=== PATIENT | female | born 1940 | race Caucasian/White ===

== ENCOUNTER → 2017-06-29 | Outpatient (CLI) | payer OTHER, BC ==
[2013-12-07 09:32] VITALS: BP 170/83
--- NOTE | 2017-06-29 11:59 | RAD ---
History: Right foot pain and swelling Study: Right foot three views Findings: Three views of the right foot demonstrates a mild hallux valgus. Alignment and joint spacin g is otherwise unremarkable. No fracture, bony destructive process or soft tissue abnormality is iden tified. There is mild soft tissue swelling over the dorsum of the foot. Impression: Mild hallux valgus. Soft tissue swelling with no acute osseous abnormality. Reported By:
== END | disposition home or self-care (01) ==
LOC: RAD 11:22
PROVIDERS: ATTEND Internal Medicine
DX: M79.671 Pain in right foot (principal); R60.0 Localized edema; M20.11 Hallux valgus (acquired), right foot
CPT/HCPCS: 73630

== ENCOUNTER 2020-07-21 14:34 | Observation (INO) ==
[2020-07-21] MEDS ORDERED: NITROSTAT SL PRN (14:56)
[2020-07-21] MEDS ORDERED: ASPIRIN 81 MG CHEWTAB ONE (14:57)
[2020-07-21] MEDS ORDERED: NITROSTAT ONE ×2 (14:57→15:10)
[2020-07-21] MEDS ORDERED: ASPIRIN PO SCH (15:00)
[2020-07-21] MEDS ORDERED: ASPIRIN 81 MG CHEWTAB PO ONE (15:02)
--- NOTE | 2020-07-21 15:05 | DR.CP ---
HPI Time Seen Time Seen by Provider: 07/21/20 14:53 PCP Primary Care Physician: KATTY Complaint Chief Complaint:: PT COMPLAINTS OF CHEST PAIN AND UPPER ABDOMEN PAIN. PT COMPLAINTS OF ABDOMEN PAIN FROM HITAL HERNIA BUT IT PAIN IS IN LEFT CHEST PAIN. PT IS NAUSEATED AND WEAK WHILE AMBULATING. DAUGHTER AT BEDSIDE. Source History Provided: Patient Mode of Arrival Mode of Arrival: Ambulatory Timing Onset of Chief Complaint: 07/21/20 Location Chest Pain Radiation Location: Left Shoulder Associated Signs and Symptoms Associated Signs and Symptoms: Abdominal Pain, Nausea/Vomiting and Other PMH PMH Past Medical History: Yes Past Medical History: Arthritis and Hypertension Past Medical History Comment: HITAL HERNIA6 Past Surgical History: Yes Surgical History: Hysterectomy and Other Past Surgical History Comment: BREAST CA Family History History of Family Medical Conditions: Yes Family Medical History: Cancer and Hypertension Social History Does patient currently use any type of tobacco product: No Have you used tobacco products in the last 12 months: No Type of Tobacco Use: None Do you use any recreational Drugs:: No Infectious screening In the last 2 months have you had wt loss of >10#?: NO Have you had fever, night sweats or hemotysis?: No Have you traveled outside the country in the last 6 months?: No Isolation: Standard PE Vitals Vitals: Temperature 98.2 F Pulse Rate 97 Respiratory Rate 32 Blood Pressure [Right Arm] 170/80 Blood Pressure 168/78 O2 Sat by Pulse Oximetry 98 COURSE Consultation Called: 15:42 Call Returned: 16:03 Consultation Comments: case discussed with Dr. Pradhan, recommend rule out over night. 1600: discussed with DR. Inman admit to rule out [place]. [facility] Labs Reviewed Result Diagrams: 07/21/20 14:56 07/21/20 14:56 Laboratory: WBC 7.1 X10^3/uL (3.6-10.0) 07/21/20 14:56 RBC 4.44 X10^6/uL (3.5-5.4) 07/21/20 14:56 Hgb 13.4 g/dL (12.0-16.0) 07/21/20 14:56 Hct 39.8 % (36.0-47.0) 07/21/20 14:56 MCV 89.6 fL (80.0-100.0) 07/21/20 14:56 MCH 30.2 pg (27.0-34.0) 07/21/20 14:56 MCHC 33.7 g/dL (33.0-35.0) 07/21/20 14:56 RDW 13.0 % (11.6-16.5) 07/21/20 14:56 Plt Count 427 X10^3/uL (150.0-450.0) 07/21/20 14:56 MPV 7.0 fL (7.4-11.0) L 07/21/20 14:56 Neut % (Auto) 66.9 % (42.0-75.0) 07/21/20 14:56 Lymph % (Auto) 22.6 % (21.0-51.0) 07/21/20 14:56 [place] % (Auto) 7.4 % (0.0-13.0) 07/21/20 14:56 Eos % (Auto) 2.4 % (0.9-2.9) 07/21/20 14:56 Baso % (Auto) 0.7 % (0.2-1.0) 07/21/20 14:56 Neut # (Auto) 4.8 x10^3/uL (2.2-4.8) 07/21/20 14:56 Lymph # (Auto) 1.6 X10^3/uL (1.3-2.9) 07/21/20 14:56 [place] # (Auto) 0.5 x10^3/uL (0.3-0.8) 07/21/20 14:56 Eos # (Auto) 0.2 x10^3/uL (0.0-0.2) 07/21/20 14:56 Baso # (Auto) 0.1 X10^3/uL (0.0-0.1) 07/21/20 14:56 Absolute Nucleated RBC 0.0 /100WBC 07/21/20 14:56 PT 12.1 SECONDS (11.8-14.3) 07/21/20 14:56 INR Target Range - 07/21/20 14:56 INR 0.92 (0.8-1.3) 07/21/20 14:56 Sodium 135 mmol/L (136-145) L 07/21/20 14:56 Corrected Sodium 136 mmol/L (136-145) 07/21/20 14:56 Potassium 3.8 mmol/L (3.5-5.1) 07/21/20 14:56 Chloride 98 mmol/L (98-107) 07/21/20 14:56 Carbon Dioxide 26.3 mmol/L (21-32) 07/21/20 14:56 BUN 22 mg/dL (7-18) H 07/21/20 14:56 Creatinine 1.35 mg/dL (0.55-1.02) H 07/21/20 14:56 Est GFR (MDRD) Af Amer 49 (>60) L 07/21/20 14:56 Est GFR (MDRD) Non-Af 40 (>60) L 07/21/20 14:56 Glucose 124 mg/dL (65-99) H 07/21/20 14:56 Calcium 9.4 mg/dL (8.5-10.1) 07/21/20 14:56 Corrected Calcium TNP 07/21/20 14:56 Magnesium 2.0 mg/dL (1.7-2.9) 07/21/20 14:56 Total Bilirubin 0.30 mg/dL (0.2-1.0) 07/21/20 14:56 AST 16 Units/L (15-37) 07/21/20 14:56 ALT 18 Units/L (12-78) 07/21/20 14:56 Alkaline Phosphatase 52 Units/L (46-116) 07/21/20 14:56 Creatine Kinase 72 Units/L (26-192) 07/21/20 14:56 CK-MB (CK-2) 1.6 ng/mL (0-4.0) 07/21/20 14:56 CK/CKMB % Calc 2.2 % (<4) 07/21/20 14:56 Troponin I < 0.02 ng/mL (0-1.5) 07/21/20 14:56 Total Protein 7.7 g/dL (6.4-8.2) 07/21/20 14:56 Albumin 4.1 g/dL (3.4-5.0) 07/21/20 14:56 Globulin 3.6 g/dL (2.5-4.5) 07/21/20 14:56 Albumin/Globulin Ratio 1.1 Ratio (1.1-2.1) 07/21/20 14:56 Triglycerides 98 mg/dL (0-150) 07/21/20 14:56 Cholesterol 204 mg/dL (0-200) H 07/21/20 14:56 LDL Cholesterol, Calc 111 mg/dL (0-100) H 07/21/20 14:56 HDL Cholesterol 73 mg/dL (40-60) H 07/21/20 14:56 Cholesterol/HDL Ratio 2.8 (0.0-5.0) 07/21/20 14:56 EKG Rate: 103 [place]: Normal Rhythm: ST Block: RBBB Hypertrophy: LVH ST: Ant Opioid Opioid Risk Tool Total: 0 Total Score Risk Category: Low Risk Copyright: Anthony LOMELI predicting aberrant behaviors Diagnosis Discharge Problem: Chest pain, rule out acute myocardial infarction
[2020-07-21] MEDS ORDERED: NS 1000 ML 1,000 ML ONE (15:11)
[2020-07-21 15:12] LABS: BASOPHILS # (AUTO) 0.1 X10^3/uL (0.0-0.1); BASOPHILS % (AUTO) 0.7 % (0.2-1.0); EOSINOPHILS # (AUTO) 0.2 x10^3/uL (0.0-0.2); EOSINOPHILS % (AUTO) 2.4 % (0.9-2.9); HEMATOCRIT 39.8 % (36.0-47.0); HEMOGLOBIN 13.4 g/dL (12.0-16.0); LYMPHOCYTES # (AUTO) 1.6 X10^3/uL (1.3-2.9); LYMPHOCYTES % (AUTO) 22.6 % (21.0-51.0); MEAN CORPUSCULAR HEMOGLOBIN 30.2 pg (27.0-34.0); MEAN CORPUSCULAR HGB CONC 33.7 g/dL (33.0-35.0); MEAN CORPUSCULAR VOLUME 89.6 fL (80.0-100.0); MONOCYTES # (AUTO) 0.5 x10^3/uL (0.3-0.8); MONOCYTES % (AUTO) 7.4 % (0.0-13.0); NEUTROPHILS # (AUTO) 4.8 x10^3/uL (2.2-4.8); NEUTROPHILS % (AUTO) 66.9 % (42.0-75.0); PLATELET COUNT 427 X10^3/uL (150.0-450.0); RED BLOOD COUNT 4.44 X10^6/uL (3.5-5.4); WHITE BLOOD COUNT 7.1 X10^3/uL (3.6-10.0)
[2020-07-21] MEDS ORDERED: MORPHINE SULFATE INJ 2 MG INJ IVP ONE ×2 (15:14→15:50)
[2020-07-21] MEDS ORDERED: ZOFRAN INJ 4 MG VIAL IVP ONE ×2 (15:15→15:57)
[2020-07-21] MEDS: NS 1000 ML 1,000 ML IV SCH (15:20)
--- NOTE | 2020-07-21 15:22 | RAD ---
HISTORYCHEST PAINSTUDYCHEST, 1 VIEWCOMPARISONNoneFINDINGSThe trachea is midline. The cardiac silhouette is mildly enlarged. There is a probable large associated hiatal hernia which could be confirmed with a lateral view.. The lungs are clear without focal infiltrate or effusion. The bony thorax is unremarkable.IMPRESSIONNo acute cardiopulmonary disease.Probable large hiatal hernia as above.Electronically signed by: AMANDA MICHELLE (Jul 21, 2020 15:20:36)
[2020-07-21 15:24] LABS: BLOOD UREA NITROGEN 22 mg/dL (7-18); CALCIUM 9.4 mg/dL (8.5-10.1); CARBON DIOXIDE 26.3 mmol/L (21-32); CHLORIDE 98 mmol/L (98-107); COR NA(FOR HYPERGLY) 136 mmol/L (136-145); CREATININE 1.35 mg/dL (0.55-1.02); SODIUM 135 mmol/L (136-145); TROPONIN I < 0.02 ng/mL (0-1.5); eGFR NON BLACK RACES 40 (>60)
[2020-07-21] MEDS ORDERED: MORPHINE SULFATE INJ 2 MG INJ ONE ×2 (15:26→15:53)
[2020-07-21] MEDS ORDERED: ZOFRAN INJ 4 MG VIAL ONE ×2 (15:26→15:58)
[2020-07-21 15:27] LABS: ALANINE AMINOTRANSFERASE 18 Units/L (12-78); ALBUMIN 4.1 g/dL (3.4-5.0); ALKALINE PHOSPHATASE 52 Units/L (46-116); ASPARTATE AMINO TRANSFERASE 16 Units/L (15-37); CHOL/HDL RATIO 2.8 (0.0-5.0); CHOLESTEROL 204 mg/dL (0-200); CKMB % 2.2 % (<4); CREATINE KINASE 72 Units/L (26-192); CREATINE KINASE MB 1.6 ng/mL (0-4.0); HDL CHOLESTEROL 73 mg/dL (40-60); TOTAL PROTEIN 7.7 g/dL (6.4-8.2); TRIGLYCERIDES 98 mg/dL (0-150)
[2020-07-21] MEDS ORDERED: LEVSIN/MAALOX/LIDOC VISC PO ONE (16:16)
[2020-07-21] MEDS ORDERED: LEVSIN/MAALOX/LIDOC VISC ONE (16:27)
[2020-07-21] MEDS ORDERED: BENTYL CAP 10 MG PO PRN (16:55)
[2020-07-21] MEDS ORDERED: OLMESARTAN MEDOXOMIL 20 MG PO SCH (16:55)
[2020-07-21] MEDS ORDERED: ZOFRAN TAB 4 MG PO PRN (16:55)
[2020-07-21] MEDS ORDERED: AFLURIA II4 or FLUARIX II4 IM ONE (17:04)
[2020-07-21] MEDS: PROTONIX INJ 40 MG VIAL IVP SCH (17:55)
[2020-07-21] MEDS ORDERED: ZOFRAN INJ 4 MG VIAL IVP PRN (18:20)
[2020-07-21 21:32] LABS: CKMB % 2.2 % (<4); CREATINE KINASE 59 Units/L (26-192); CREATINE KINASE MB 1.3 ng/mL (0-4.0); TROPONIN I < 0.02 ng/mL (0-1.5)
[2020-07-22 03:21] LABS: BASOPHILS % (AUTO) 0.8 % (0.2-1.0); EOSINOPHILS # (AUTO) 0.1 x10^3/uL (0.0-0.2); EOSINOPHILS % (AUTO) 1.7 % (0.9-2.9); HEMATOCRIT 34.8 % (36.0-47.0); HEMOGLOBIN 11.4 g/dL (12.0-16.0); LYMPHOCYTES # (AUTO) 1.6 X10^3/uL (1.3-2.9); LYMPHOCYTES % (AUTO) 24.5 % (21.0-51.0); MEAN CORPUSCULAR HGB CONC 32.8 g/dL (33.0-35.0); MEAN CORPUSCULAR VOLUME 91.3 fL (80.0-100.0); MEAN PLATELET VOLUME 7.1 fL (7.4-11.0); MONOCYTES # (AUTO) 0.5 x10^3/uL (0.3-0.8); MONOCYTES % (AUTO) 7.1 % (0.0-13.0); NEUTROPHILS # (AUTO) 4.2 x10^3/uL (2.2-4.8); NEUTROPHILS % (AUTO) 65.9 % (42.0-75.0); PLATELET COUNT 351 X10^3/uL (150.0-450.0); RED BLOOD COUNT 3.82 X10^6/uL (3.5-5.4); RED CELL DISTRIBUTION WIDTH 12.9 % (11.6-16.5); WHITE BLOOD COUNT 6.4 X10^3/uL (3.6-10.0)
[2020-07-22 03:37] LABS: ALANINE AMINOTRANSFERASE 16 Units/L (12-78); ALKALINE PHOSPHATASE 42 Units/L (46-116); ASPARTATE AMINO TRANSFERASE 13 Units/L (15-37); BLOOD UREA NITROGEN 18 mg/dL (7-18); CALCIUM 8.4 mg/dL (8.5-10.1); CARBON DIOXIDE 29.8 mmol/L (21-32); CHLORIDE 104 mmol/L (98-107); CKMB % 2.1 % (<4); COR CA(FOR HYPOALB) 9.2 mg/dL (8.5-10.1); CREATINE KINASE 47 Units/L (26-192); SODIUM 139 mmol/L (136-145); TROPONIN I < 0.02 ng/mL (0-1.5); eGFR NON BLACK RACES 38 (>60)
[2020-07-22] MEDS: NS 1000 ML 1,000 ML IV SCH ×2 (03:58→16:00)
[2020-07-22] MEDS: PROTONIX INJ 40 MG VIAL IVP SCH (08:26)
[2020-07-22] MEDS ORDERED: BENICAR TAB 40 MG PO SCH (09:00)
[2020-07-22] MEDS ORDERED: MULTIVITAMIN PO SCH (09:00)
[2020-07-22] MEDS ORDERED: TAB-A-VITE PO SCH (09:00)
[2020-07-22] MEDS ORDERED: COZAAR PO SCH (10:00)
--- NOTE | 2020-07-22 10:50 | DR.H&P ---
H&P - History & Physical for Day of: H&P Date: 07/21/20 - Chief Complaint Chief Complaint: EPIGASTRIC PAIN, CHEST PAIN - History of Present Illness History of Present Illness: IS A 80 YEAR OLD PATIENT OF OURS. SHE PRESENTED TO THE HOSPITAL WITH COMPLAINTS OF EPIGASTRIC PAIN AND CHEST PAIN. CHEST PAIN IS DESCRIBED LEFT SIDED, DULL, INTERMITTENT, AND IS RATED 3/10 ON ARRIVAL. EPIGASTRIC PAIN IS RATED 6/10. ASSOCIATED SYMPTOMS INCLUDE NAUSEA, VOMITING, AND WEAKNESS. NAUSEA AND ABDOMINAL PAIN IS WORSE AFTER EATING. SHE DOES HAVE A HISTORY OF A HIATAL HERNIA. ON ARRIVAL TO THE ER, VITALS WERE 98.7-429-77-100%-216/91. LABS WERE OBTAINED. ABNORMAL LAB VALUES INCLUDE THE FOLLOWING: SODIUM 135, BUN 22, CREATININE 1.35, GLUCOSE 124, CHOLESTEROL 204, LDL 111, HDL 73. CARDIAC ENZYMES WERE WITHIN NORMAL LIMITS. A CHEST XRAY WAS OB TAINED AND REVEALED: The trachea is midline. The cardiac silhouette is mildly enlarged. There is a probable large associated hiatal hernia which could be confirmed with a lateral view. The lungs are clear without focal infiltrate or effusion. The bony thorax is unremarkable. EKG REVEALED: SINUS TACHYCARDIA WITH HR 103. SHE WAS GIVEN GI COCKTAIL, ZOFRAN 4MG IV X 1, MORPHINE 2MG IV X 2 DOSES IN THE ER. SHE REPORTED ONLY SLIGHT IMPROVEMENT IN SYMPTOMS. SHE WAS ADMITTED TO THE HOSPITAL FOR FURTHER EVALUATION AND TREATMENT OF CHEST PAIN RULE OUT ACUTE PA, ABDOMINAL PAIN, HIATAL HERNIA. SHE WAS STARTED ON NORMAL SALINE AT 125 ML/HR, ZOFRAN 4MG IV Q6H PRN, NITROSTAT Q5M PRN, PROTONIX 40MG IV DAILY, COZAAR 50MG PO DAILY, AND A MULTI VITAMIN DAILY. WE WILL OBTAIN SERIAL CARDIAC ENZYMES AND EKGS. WE WILL CONSULT WITH , INFANT CAREGIVER. OTHERWISE, WE PLAN TO FOLLOW UP WITH AM LABS AND CONTINUE TO MONITOR. - Past Medical History Past Medical History: Hypertension, Arthritis Additional Medical History: HIATAL HERNIA - Past Surgical History Surgical History: Hysterectomy, Other - Family History Family Medical History: Cancer, Hypertension - Social History Does patient currently use any type of tobacco product: No Have you used tobacco products in the last 12 months: No Type of Tobacco Use: None Does any household member use tobacco: No Alcohol Use: None Drug Use: None - Medications Home Medications: No Known Drug Allergies Allergy (Verified 01/12/19 13:08) CONTINUE taking the following medications amlodipine 5 mg PO DAILY 07/21/20 [History] losartan 50 mg PO DAILY 07/21/20 [History] meloxicam 15 mg PO DAILY 07/21/20 [History] triamterene-hydrochlorothiazid 1 cap PO DAILY 07/21/20 [History] - Review of Systems Constitutional: Weakness Eyes: No Symptoms Reported ENT: No Symptoms Reported Respiratory: No Symptoms Reported Cardiovascular: Chest Pain, See HPI Gastrointestinal: See HPI, Nausea, Vomiting, Abdominal Pain Genitourinary: No Symptoms Reported Musculoskeletal: No Symptoms Reported Skin: No Symptoms Reported Neurological: Weakness - Physical Exam Vital Signs: Temperature 97.8 F Pulse Rate [Right Radial] 70 Pulse Rate 101 Respiratory Rate 20 Blood Pressure [Right Arm] 135/62 Blood Pressure 162/82 O2 Sat by Pulse Oximetry 99 Oriented: Normal Eyes: Normal Ear: Normal Nose: Normal Throat: Normal Respiratory: Diminished Throughout Cardiovascular: Normal : Normal Auscultation: Bowel Sounds: Normal Palpation: Normal Tenderness: Diffuse Skin: Normal Musculoskeletal: Normal Psychiatric: Normal Mood Description: Calm Affect: Normal Speech Pattern: Clear - Assessment/Plan (1) Chest pain, rule out acute myocardial infarction Status: Acute Plan: ADMIT, SERIAL CARDIAC ENZYMES AND EKGS, NORMAL SALINE AT 125 ML/HR, ZOFRAN 4MG IV Q6H PRN, NITROSTAT Q5M PRN, PROTONIX 40MG IV DAILY, COZAAR 50MG PO DAILY, AND A MULTI VITAMIN DAILY. (2) Abdominal pain Qualifiers: Abdominal location: epigastric Qualified Code(s): R10.13 - Epigastric pain Status: Acute Plan: CONSULT GASTROENTEROLOGY (3) Hiatal hernia Status: Acute - Allergies Allergies/Adverse Reactions: Allergies Allergy/AdvReac Type Severity Reaction Status Date / Time No Known Drug Allergies Allergy Verified 01/12/19 13:08
[2020-07-22] MEDS ORDERED: DIPRIVAN VIAL 20 ML ONE (16:08)
[2020-07-22 17:56] VITALS: BP 139/69
[2020-07-22] MEDS ORDERED: PROTONIX INJ 40 MG VIAL IVP SCH (21:00)
== END 2020-07-22 18:25 | disposition home or self-care (01) ==
LOC: MED/SURG 14:39 → ER 14:39 → MED/SURG 17:10
PROVIDERS: ADMIT Internal Medicine; ATTEND Internal Medicine
DX: K22.2 Esophageal obstruction; K20.80 Other esophagitis without bleeding; K44.9 Diaphragmatic hernia without obstruction or gangrene; K25.9 Gastric ulcer, unspecified as acute or chronic, without hemorrhage or perforation; R11.2 Nausea with vomiting, unspecified; Z23 Encounter for immunization; Z79.899 Other long term (current) drug therapy; R94.31 Abnormal electrocardiogram [ECG] [EKG]; R07.89 Other chest pain; Z20.828 Contact with and (suspected) exposure to other viral communicable diseases; R13.11 Dysphagia, oral phase; I10 Essential (primary) hypertension; R53.1 Weakness; R10.13 Epigastric pain

== ENCOUNTER 2023-02-28 10:37 | Observation (INO) ==
[2023-02-28] MEDS ORDERED: NS 1,000 ML IV 1,000 ML ONE (12:14)
--- NOTE | 2023-02-28 12:14 | EKG ---
Test Reason : weakness, sob Blood Pressure : */* mmHG Vent. Rate : 81 BPM Atrial Rate : 81 BPM P-R Int : 160 ms QRS Dur : 154 ms QT Int : 474 ms P-R-T Axes : 52 -60 68 degrees QTc Int : 550 ms Normal sinus rhythm Right bundle branch block Left anterior fascicular block Bifascicular block Left ventricular hypertrophy ( R in aVL , Romhilt-Joyner ) Cannot rule out Septal infarct (cited on or before 15-FEB-2023) Abnormal ECG When compared with ECG of 15-FEB-2023 22:19, premature atrial complexes are no longer present Right bundle branch block has replaced RSR' pattern in V1 Questionable change in initial forces of Anterolateral leads Confirmed by Jose Luis Dow ([id number]) on 02/28/2023 7:54:36 PM Referred By: Confirmed By: Jose Luis Dow
[2023-02-28 12:18] LABS: BASOPHILS # (AUTO) 0.1 X10^3/uL (0.0-0.1); EOSINOPHILS # (AUTO) 0.2 x10^3/uL (0.0-0.2); EOSINOPHILS % (AUTO) 4.1 % (0.9-2.9); HEMATOCRIT 35.1 % (36.0-47.0); HEMOGLOBIN 11.9 g/dL (12.0-16.0); LYMPHOCYTES % (AUTO) 17.3 % (21.0-51.0); MEAN CORPUSCULAR HEMOGLOBIN 29.7 pg (27.0-34.0); MEAN CORPUSCULAR HGB CONC 33.9 g/dL (33.0-35.0); MEAN CORPUSCULAR VOLUME 87.6 fL (80.0-100.0); MEAN PLATELET VOLUME 6.8 fL (7.4-11.0); MONOCYTES # (AUTO) 0.5 x10^3/uL (0.3-0.8); MONOCYTES % (AUTO) 8.8 % (0.0-13.0); NEUTROPHILS # (AUTO) 3.8 x10^3/uL (2.2-4.8); NEUTROPHILS % (AUTO) 67.8 % (42.0-75.0); PLATELET COUNT 666 X10^3/uL (150.0-450.0); RED BLOOD COUNT 4.01 X10^6/uL (3.5-5.4); RED CELL DISTRIBUTION WIDTH 13.2 % (11.6-16.5); WHITE BLOOD COUNT 5.6 X10^3/uL (3.6-10.0)
[2023-02-28] MEDS: NS 1,000 ML IV 1,000 ML IV SCH (12:21)
[2023-02-28 12:38] LABS: ALANINE AMINOTRANSFERASE 15 Units/L (12-78); ALBUMIN 3.7 g/dL (3.4-5.0); ALKALINE PHOSPHATASE 47 Units/L (46-116); ASPARTATE AMINO TRANSFERASE 14 Units/L (15-37); BLOOD UREA NITROGEN 28 mg/dL (7-18); CALCIUM 9.6 mg/dL (8.5-10.1); CARBON DIOXIDE 30.4 mmol/L (21-32); CHLORIDE 98 mmol/L (98-107); CREATINE KINASE 25 Units/L (26-192); CREATININE 1.63 mg/dL (0.55-1.02); GLUCOSE 98 mg/dL (65-99); POTASSIUM 4.1 mmol/L (3.5-5.1); SODIUM 135 mmol/L (136-145); TOTAL PROTEIN 7.3 g/dL (6.4-8.2); eGFR NON BLACK RACES 32 (>60)
[2023-02-28 15:58] LABS: BILIRUBIN,URINE NEGATIVE (NEGATIVE); BLOOD/HEMOGLOBIN,URINE NEGATIVE (NEGATIVE); GLUCOSE, URINE NEGATIVE (NEGATIVE); KETONES,URINE NEGATIVE (NEGATIVE); LEUKOCYTE ESTERASE ,URINE NEGATIVE (NEGATIVE); NITRITES,URINE NEGATIVE (NEGATIVE); PROTEIN,URINE NEGATIVE (NEGATIVE); UROBILINOGEN,URINE NORMAL (NORMAL)
[2023-02-28 16:03] LABS: APPEARANCE,URINE CLEAR (CLEAR); COLOR,URINE STRAW (YELLOW)
[2023-02-28] MEDS: LOVENOX INJ 30 MG SYR SC SCH (16:13)
[2023-02-28] MEDS ORDERED: CIPRO IV 200 MG PREMIX* 200 MG/100 ML BAG IV ONE (19:24)
[2023-02-28] MEDS: CIPRO IV 200 MG PREMIX* 200 MG/100 ML BAG IV SCH (20:37)
[2023-02-28] MEDS ORDERED: RESTORIL CAP 15 MG PO ONE (20:44)
[2023-02-28] MEDS: RESTORIL CAP 15 MG PO PRN (20:55)
[2023-03-01] MEDS ORDERED: READI-CAT 2 ONE (03:22)
[2023-03-01] MEDS: NS 1,000 ML IV 1,000 ML IV SCH ×3 (05:11→18:15)
[2023-03-01 05:45] LABS: BASOPHILS % (AUTO) 0.3 % (0.2-1.0); EOSINOPHILS # (AUTO) 0.3 x10^3/uL (0.0-0.2); EOSINOPHILS % (AUTO) 5.7 % (0.9-2.9); HEMATOCRIT 33.7 % (36.0-47.0); HEMOGLOBIN 11.5 g/dL (12.0-16.0); LYMPHOCYTES # (AUTO) 1.5 X10^3/uL (1.3-2.9); LYMPHOCYTES % (AUTO) 25.4 % (21.0-51.0); MEAN CORPUSCULAR HEMOGLOBIN 29.7 pg (27.0-34.0); MEAN CORPUSCULAR HGB CONC 34.1 g/dL (33.0-35.0); MEAN CORPUSCULAR VOLUME 87.3 fL (80.0-100.0); MEAN PLATELET VOLUME 6.9 fL (7.4-11.0); MONOCYTES # (AUTO) 0.6 x10^3/uL (0.3-0.8); MONOCYTES % (AUTO) 10.3 % (0.0-13.0); NEUTROPHILS # (AUTO) 3.4 x10^3/uL (2.2-4.8); NEUTROPHILS % (AUTO) 58.3 % (42.0-75.0); PLATELET COUNT 643 X10^3/uL (150.0-450.0); RED BLOOD COUNT 3.86 X10^6/uL (3.5-5.4); RED CELL DISTRIBUTION WIDTH 13.1 % (11.6-16.5); WHITE BLOOD COUNT 5.8 X10^3/uL (3.6-10.0)
[2023-03-01 06:07] LABS: ALANINE AMINOTRANSFERASE 12 Units/L (12-78); ALBUMIN 3.1 g/dL (3.4-5.0); ALKALINE PHOSPHATASE 40 Units/L (46-116); ASPARTATE AMINO TRANSFERASE 12 Units/L (15-37); BLOOD UREA NITROGEN 25 mg/dL (7-18); CALCIUM 8.7 mg/dL (8.5-10.1); CARBON DIOXIDE 25.7 mmol/L (21-32); CHLORIDE 105 mmol/L (98-107); COR CA(FOR HYPOALB) 9.4 mg/dL (8.5-10.1); CREATININE 1.37 mg/dL (0.55-1.02); GLUCOSE 97 mg/dL (65-99); MAGNESIUM 1.9 mg/dL (2.0-2.9); POTASSIUM 3.8 mmol/L (3.5-5.1); SODIUM 140 mmol/L (136-145); TOTAL PROTEIN 6.4 g/dL (6.4-8.2); eGFR NON BLACK RACES 39 (>60)
[2023-03-01] MEDS ORDERED: K-DUR TAB 20 MEQ PO SCH (07:00)
[2023-03-01] MEDS: MAGNESIUM SULFATE 1 GRAM/100 mL PREMIX 1 G/100 ML BAG IV SCH ×2 (07:35→09:00)
[2023-03-01] MEDS: LOVENOX INJ 30 MG SYR SC SCH (08:30)
[2023-03-01] MEDS: PHARMACY CONSULT - POTASSIUM & MAGNESIUM XX SCH (09:01)
--- NOTE | 2023-03-01 09:20 | CT ---
HISTORYDIZZINESS, WEAKNESSSTUDYBRAIN W/O CONCOMPARISONNoneTECHNIQUEMult iple axial images of the head without contrast. Dose reduction techniques including Automated Exposure Control (AEC) and adjustment of mA and kV were utilized.Contrast: NoneFINDINGSNo acute territorial infarct, focal mass lesion, or midline shift. Moderate global cerebral volume loss. There are patchy and confluent white matter hypodensities are nonspecific and likely represent chronic microangiopathy. No acute intracranial hemorrhage or extra-axial fluid collection. The basal cisterns are patent. Mild atherosclerotic calcifications intracranial vasculature. Bilateral lens replacements. The mastoid air cells and paranasal sinuses are well aerated. The calvarium appears intact.IMPRESSION1. No acute intracranial abnormality. If concern for stroke, consider MRI for increased sensitivity.2. Moderate global cerebral volume loss and chronic small vessel ischemic disease.Electronically signed by: Benjamin Maxwell (Mar 01, 2023 09:19:01)
--- NOTE | 2023-03-01 09:33 | RAD ---
HISTORYShortness of breath and feverSTUDYCHEST, 1 VIEWCOMPARISONNoneFINDINGSThe trachea is midline. Moderate sized central sliding hiatal hernia is noted to be present the cardiac silhouette is enlarged with a tortuous thoracic aorta. Retrocardiac density left lower lobe is observed may be on the basis of developing bronchopneumonia. Subsegmental atelectasis would produce a similar appearance with air bronchograms.. The bony thorax is unremarkable.IMPRESSIONPleural parenchymal opacity the retrocardiac region left lower lobe which developing bronchopneumonia cannot be excluded. Continued follow-up will be needed.Electronically signed by: TALON DEL VALLE (Mar 01, 2023 09:31:58)
--- NOTE | 2023-03-01 09:52 | DR.UPDATE ---
H&P Update Prescription drug monitoring program results: PDMP reviewed and no concerns identified H&P Reviewed: Yes Any changes to H&P?: Yes Changes noted:: WAS RECENTLY HOSPITALIZED FROM 02/15/23 UNTIL 02/19/23 FOR TREATMENT OF CYSTITIS, DEHYDRATION, ACUTE HYPONATREMIA, HYPOKALEMIA, DIARRHEA, AND HTN. SHE WAS DISCHARGED WITH PRESCRIPTIONS OF CIPRO 750MG BID, CULTURELLE 1 CAPSULE DAILY, AND LOMOTIL 1 TAB TID PRN FOR DIARRHEA. UPON FOLLOW- UP WITH PATIENT, SHE REPORTED PERSISTENT NAUSEA, DIZZINESS, GENERALIZED WEAKNESS, UNSTEADY GAIT, AND OCCASIONAL FEVER. SHE ALSO REPORTS OCCASIONAL SHORTNESS OF BREATH AND LOW BLOOD PRESSURE AT HOME. SHE DENIES SIGNIFICANT IMPROVEMENT IN SYMPTOMS SINCE SHE WAS DISCHARGED FROM THE HOSPITAL. DECISION WAS MADE TO READMIT PATIENT OBSERVATION STATUS FOR FURTHER EVALUATION AND TREATMENT. SHE HAS A PMH OF HTN, ARTHRITIS, HIATAL HERNIA, MITRAL REGURGITATION, AND BREAST CANCER. ON ADMISSION, HER VITALS WERE: 97.3-92-20-98%-178/79. LABS WERE OBTAINED. WBC 5.6, RBC 4.01, HGB 11.9, HCT 35.1, PLT COUNT 666, SODIUM 135, POTASSIUM 4.1, CHLORIDE 98, CARBON DIOXIDE 30.4, BUN 28, CREATININE 1.63, GLUCOSE 98, CALCIUM 9.6, TOTAL BILI 0.50, AST 14, ALT 15, ALK PHOS 47, CREATINE KINASE 25, TROPONIN 10.5, TOTAL PROTEIN 7.3, ALBUM IN 3.7. A URINALYSIS WAS REPEATED AND WAS UNREMARKABLE, HOWEVER, A URINE CULTURE AND BLOOD CULTURES WERE SET UP. A CHEST XRAY WAS OBTAINED AND REVEALED: Pleural parenchymal opacity the retrocardiac region left lower lobe which developing bronchopneumonia cannot be excluded. EKG WAS OBTAINED AND RVEALED: NSR, RIGHT BUNDLE BRANCH BLOCK. HR 81 BPM. SHE WAS STARTED ON NORMAL SALINE AT 80 ML/HR, CIPRO 200MG IV Q12H, XOPENEX NEBS TID, RESTORIL 15MG PO HS. WE WILL RESUME HER PROBIOTICS. WE WILL HOLD THE TRIAMTERENE-HCTZ AND LOSARTAN UNTIL WE HAVE A BETTER IDEA OF WHAT HER BLOOD PRESSURE IS RUNNING. WE WILL OBTAIN A RESPIRATORY AIT PANEL, CHEST CT WITH CONTRAST, ABDOMEN/PELVIS CT WITH CONTRAST, AND A BRAIN CT WITHOUT CONTRAST. OTHERWISE, WE WILL FOLLOW-UP WITH AM LABS AND CONTINUE TO MONITOR. TIME SPENT ON CLINICAL ASSESSMENT, REVIEWING LABS AND IMAGING, DECISION MAKING, AND DOCUMENTATION GREATER THAN 75 MINUTES. ADMISSION DIAGNOSIS: BRONCHOPNEUMONIA, DEHYDRATION, GENERALIZED WEAKNESS, NAUSEA AND VOMITING, DIZZINESS, HTN, HX BREAST CANCER. Patient was examined?: Yes
[2023-03-01] MEDS: XOPENEX 1.25 MG/3 ML NEBULE NEB SCH ×3 (10:06→20:31)
[2023-03-01] MEDS: CIPRO IV 200 MG PREMIX* 200 MG/100 ML BAG IV SCH ×2 (10:08→21:05)
[2023-03-01] MEDS: VSL#3 PO SCH (10:09)
[2023-03-01] MEDS: TORADOL 15 MG VIAL IVP SCH ×2 (10:09→18:32)
--- NOTE | 2023-03-01 10:37 | PCM.PROG ---
Progress Note - Progress Note for Day of Date of Exam: 03/01/23 - Subjective Subjective: IS CURRENTLY OBSERVATION STATUS FOR TREATMENT OF BRONCHOPNEUMONIA, DEHYDRATION, GENERALIZED WEAKNESS, NAUSEA AND VOMITING, AND DIZZINESS. TODAY, SHE IS ALERT AND ORIENTED, SITTING UP IN BED ON MORNING ROUNDS. SHE REPORTS IMPROVEMENT IN NAUSEA AND DIZZINESS THIS MORNING, BUT CONTINUES TO COMPLAIN OF PERSISTENT WEAKNESS AND SHORTNESS OF BREATH AT TIMES. SHE HAS AN OCCASIONAL NON-PRODUCTIVE COUGH THIS MORNING. SHE ALSO REPORTS GENERALIZED BODY ACHES. UPON EXAMINATION, HEART IS REGULAR IN RATE AND RHYTHM. BILATERAL LUNGS ARE NOTED WITH DIMINISHED LUNG SOUNDS THROUGHOUT. ABDOMEN IS FLAT, SOFT, AND NON-TENDER WITH NORMAL BOWEL SOUNDS NOTED IN ALL QUADRANTS. GOOD MOVEMENT NOTED TO UPPER AND LOWER EXTREMITIES WITH NO EDEMA NOTED. HER VITALS THIS MORNING ARE: 98.2-87-18-98%-167/90. LABS WERE OBTAINED. WBC 5.8, RBC 3.86, HGB 11.5, HCT 33.7, PLT COUNT 643, SODIUM 140, POTASSIUM 3.8, CHLORIDE 105, BUN 25, CREATININE 1.37, GLUCOSE 97, MAGNESIUM 1.9, TOTAL BILI 0.30, AST 12, ALT 12, ALK PHOS 40, TOTAL PROTEIN 6.4, ALBUMIN 3.1. BLOOD AND URINE CULTURES ARE PENDING. A BRAIN CT WITHOUT CONTRAST WAS OBTAINED THIS MORNING. IT REVEALED: 1. No acute intracranial abnormality. 2. Moderate global cerebral volume loss and chronic small vessel ischemic disease. WE OBTAINED A CHEST CT WITH CONTRAST AND AN ABDOMEN/PELVIS CT WITH CONTRAST. ABDOMEN/PELVIS CT REVEALED: Mild to moderate constipation, no acute intra-abdominal abnormalities. Large hiatal hernia containing the stomach and the transverse colon. CHEST CT REVEALED: Enlarged pretracheal lymph nodes measuring 2.2 centimeters with also small 7 millimeters anterior mediastinal lymph node. Consider mild mediastinal adenopathy. PET scan or follow up with CT chest in 3-6 months can be performed. No evidence of focal pneumonia or suspicious lung nodules. SHE IS CURRENTLY RECEIVING NORMAL SALINE AT 80 ML/HR, CIPRO 200MG IV Q12H, XOPENEX NEBS TID, RESTORIL 15MG PO HS, PROBIOTICS DAILY. TODAY, WE WILL ADD ALBUMIN 25% IV DAILY AND TORADOL 15MG IV Q8H FOR PAIN AND INFLAMMATION. WE WILL HAVE PHYSICAL THERAPY WORK WITH HER TODAY. OTHERWISE, WE WILL FOLLOW-UP WITH AM LABS AND CHEST XRAY AND CONTINUE TO MONITOR. TIME SPENT ON CLINICAL ASSESSMENT, REVIEWING LABS AND IMAGING, DECISION MAKING, AND DOCUMENTATION GREATER THAN 45 MINUTES. - Past Medical Family Social History Past Med/Fam/Surg Hx: No changes since H&P Allergies: Allergies No Known Drug Allergies Allergy (Verified 10/30/20 08:23) - Review of Systems ROS: No change since H&P - Vital Signs and I&O's Vital Signs: Vital Signs Temperature 98.2 F Temperature 98.3 F Pulse Rate [Bilateral Radial] 87 Pulse Rate [Bilateral Radial] 83 Respiratory Rate 18 Respiratory Rate 18 Respiratory Rate 18 Blood Pressure [Right Arm] 167/90 Blood Pressure [Right Arm] 152/67 O2 Sat by Pulse Oximetry 98 O2 Sat by Pulse Oximetry 98 03/01/23 10:09 03/01/23 07:00 03/01/23 08:00 Temperature 98.2 F Temperature Source Oral Pulse Rate [Bilateral Radial] 87 Pulse Strength [Bilateral Radial] Normal Respiratory Rate 18 18 Respiratory Depth Normal Respiratory Effort Normal Non-Labored Normal Non-Labored Respiratory Pattern Normal O2 Sat by Pulse Oximetry 98 Oxygen Delivery Method Room Air Room Air Blood Pressure [Right Arm] 167/90 Blood Pressure Mean [Right Arm] 115 Blood Pressure Source [Right Arm] Automatic Cuff Blood Pressure Position [Right Arm] Semi Agudelo's Intake and Output: Intake & Output 02/26/23 02/27/23 02/28/23 03/01/23 11:59 11:59 11:59 11:59 Intake Total 1811 181 Balance 1811 - Physical Exam Oriented: Normal Eyes: Normal Ear: Normal Nose: Normal Throat: Normal Respiratory: Generalized, Diminished Cardiovascular: Normal : Normal Auscultation: Bowel Sounds: Normal Palpation: Normal Tenderness: Normal Skin: Decreased [place] Musculoskeletal: Normal Psychiatric: Normal Mood Description: Calm Affect: Normal Speech Pattern: Clear, Appropriate - Laboratory and Diagnostics Result Diagrams: 03/01/23 05:26 03/01/23 05:26 Labs: 02/28/23 14:30 Urine,Clean Catch Urine Culture - Preliminary Laboratory WBC 5.8 X10^3/uL (3.6-10.0) 03/01/23 05:26 RBC 3.86 X10^6/uL (3.5-5.4) 03/01/23 05:26 Hgb 11.5 g/dL (12.0-16.0) L 03/01/23 05:26 Hct 33.7 % (36.0-47.0) L 03/01/23 05:26 MCV 87.3 fL (80.0-100.0) 03/01/23 05:26 MCH 29.7 pg (27.0-34.0) 03/01/23 05:26 MCHC 34.1 g/dL (33.0-35.0) 03/01/23 05:26 RDW 13.1 % (11.6-16.5) 03/01/23 05:26 Plt Count 643 X10^3/uL (150.0-450.0) H 03/01/23 05:26 MPV 6.9 fL (7.4-11.0) L 03/01/23 05:26 Neut % (Auto) 58.3 % (42.0-75.0) 03/01/23 05:26 Lymph % (Auto) 25.4 % (21.0-51.0) 03/01/23 05:26 [place] % (Auto) 10.3 % (0.0-13.0) 03/01/23 05:26 Eos % (Auto) 5.7 % (0.9-2.9) H 03/01/23 05:26 Baso % (Auto) 0.3 % (0.2-1.0) 03/01/23 05:26 Neut # (Auto) 3.4 x10^3/uL (2.2-4.8) 03/01/23 05:26 Lymph # (Auto) 1.5 X10^3/uL (1.3-2.9) 03/01/23 05:26 [place] # (Auto) 0.6 x10^3/uL (0.3-0.8) 03/01/23 05:26 Eos # (Auto) 0.3 x10^3/uL (0.0-0.2) H 03/01/23 05:26 Baso # (Auto) 0.0 X10^3/uL (0.0-0.1) 03/01/23 05:26 Absolute Nucleated RBC 0.0 /100WBC 03/01/23 05:26 Sodium 140 mmol/L (136-145) 03/01/23 05:26 Corrected Sodium TNP 03/01/23 05:26 Potassium 3.8 mmol/L (3.5-5.1) 03/01/23 05:26 Chloride 105 mmol/L (98-107) 03/01/23 05:26 Carbon Dioxide 25.7 mmol/L (21-32) 03/01/23 05:26 BUN 25 mg/dL (7-18) H 03/01/23 05:26 Creatinine 1.37 mg/dL (0.55-1.02) H 03/01/23 05:26 Est GFR (MDRD) Af Amer 47 (>60) L 03/01/23 05:26 Est GFR (MDRD) Non-Af 39 (>60) L 03/01/23 05:26 Glucose 97 mg/dL (65-99) 03/01/23 05:26 Calcium 8.7 mg/dL (8.5-10.1) 03/01/23 05:26 Corrected Calcium 9.4 mg/dL (8.5-10.1) 03/01/23 05:26 Magnesium 1.9 mg/dL (2.0-2.9) L 03/01/23 05:26 Total Bilirubin 0.30 mg/dL (0.2-1.0) 03/01/23 05:26 AST 12 Units/L (15-37) L 03/01/23 05:26 ALT 12 Units/L (12-78) 03/01/23 05:26 Alkaline Phosphatase 40 Units/L (46-116) L 03/01/23 05:26 Creatine Kinase 25 Units/L (26-192) L 02/28/23 11:55 Troponin I High Sens 10.5 ng/L (4.0-60.0) 02/28/23 11:55 Total Protein 6.4 g/dL (6.4-8.2) 03/01/23 05:26 Albumin 3.1 g/dL (3.4-5.0) L 03/01/23 05:26 Globulin 3.3 g/dL (2.5-4.5) 03/01/23 05:26 Albumin/Globulin Ratio 0.9 Ratio (1.1-2.1) L 03/01/23 05:26 Specimen Type Clean catch urine 02/28/23 14:30 Urine Color Straw (YELLOW) 02/28/23 14:30 Urine Appearance Clear (CLEAR) 02/28/23 14:30 Urine pH 6.0 (5.0 - 8.0) 02/28/23 14:30 Ur Specific [place] 1.015 (1.000-1.030) 02/28/23 14:30 Urine Protein Negative (NEGATIVE) 02/28/23 14:30 Urine Glucose (UA) Negative (NEGATIVE) 02/28/23 14:30 Urine Ketones Negative (NEGATIVE) 02/28/23 14:30 Urine Blood Negative (NEGATIVE) 02/28/23 14:30 Urine Nitrite Negative (NEGATIVE) 02/28/23 14:30 Urine Bilirubin Negative (NEGATIVE) 02/28/23 14:30 Urine Urobilinogen Normal (NORMAL) 02/28/23 14:30 Ur Leukocyte Esterase Negative (NEGATIVE) 02/28/23 14:30 - Plan (1) Bronchopneumonia Status: Acute Plan: NORMAL SALINE AT 80 ML/HR, CIPRO 200MG IV Q12H, ALBUMIN 25% IV DAILY, TORADOL 15MG IV Q8H, XOPENEX NEBS TID, RESTORIL 15MG PO HS, PROBIOTICS DAILY. (2) Dehydration Status: Acute (3) Dizziness Status: Acute (4) Nausea and vomiting Status: Acute Qualifiers: Vomiting type: unspecified Qualified Code(s): R11.2 - Nausea with vomiting, unspecified (5) Hypoalbuminemia Status: Acute (6) Hypertension Status: Chronic Qualifiers: Hypertension type: primary hypertension Qualified Code(s): I10 - Essential (primary) hypertension (7) History of breast cancer Status: Acute
[2023-03-01] MEDS: ALBUMIN HUMAN 25%- 100 ML 100 ML IV SCH (11:37)
[2023-03-01] MEDS: COZAAR PO SCH (12:58)
--- NOTE | 2023-03-01 13:03 | CT ---
HISTORYFEVER, SOB, HX BREAST CASTUDYCHEST WITH CONCOMPARISONNone availableTECHNIQUEAxial images through the chest was performed after the administration of intravenous contrast. CT scan was performed following ALARA (As low as Reasonably Achievable).Coronal and Sagittal reformatted images were performed.FINDINGSThe type gland is no significant enlarged. There is no evidence of axillary adenopathy. There is pretracheal lymph nodes measuring approximately 2.2 centimeters. There is also and small anterior mediastinal lymph node measuring 7 millimeters.There is also a left-sided pretracheal lymph node measuring in short axis 1.5 centimeters.There is also a small sub carinal lymph node measuring 7 millimeters, the ascending aorta measures 2.9 centimeters. No pleural or pericardial effusions.There is a large hiatal hernia containing the stomach and the transverse colon. No adrenal masses. The spleen is no enlarge, tiny gallstone is present.Lung windows there is emphysema, there is patchy atelectasis at the bases. There is no evidence of focal pneumonia, no suspicious lung nodules.Bone windows no evidence of aggressive bone lesions. No acute fractures. There is generalized osteopenia. There is severe degenerative disc disease at T12-L1. Mild biapical fibrosis.IMPRESSIONEnlarged pretracheal lymph nodes measuring 2.2 centimeters with also small 7 millimeters anterior mediastinal lymph node. Consider mild mediastinal adenopathy. PET scan or follow up with CT chest in 3-6 months can be performed.No evidence of focal pneumonia or suspicious lung nodules.Electronically signed by: April Barnett (Mar 01, 2023 13:02:05)
--- NOTE | 2023-03-01 13:06 | CT ---
HISTORYFEVER, ABDOMINAL PAINSTUDYABDOMEN/PELVIS WITH CONCOMPARISONNone availableTECHNIQUEAxial images through the abdomen and pelvis were performed after the administration of intravenous contrast.CT scan was performed following ALARA (As low as Reasonably Achievable).Coronal and Sagittal reformatted images were performed.FINDINGSThe lung bases are clear. There is a large hiatal hernia containing stomach and the transverse colon. No pleural or pericardial effusions.The liver, spleen and pancreas demonstrate no focal lesions. Tiny gallstone is present. There is normal enhancement of the portal vein. No adrenal masses.There are bilateral normal enhancing kidneys without evidence of hydronephrosis, no evidence of obstructive ureteral stones.No abnormal dilated small bowel loops no free air. There is mild constipation, no evidence of appendicitis. The terminal ileum is unremarkable.Pelvis: No free fluid the prostate is no enlarged urinary bladder is unremarkable there is no pelvic adenopathy no diverticulitisBone windows no evidence of aggressive bone lesions. No acute fracturesThere is mild levoscoliosis. There is degenerative disc disease at L3-L4 and L4-L5 and T12-L1. No aggressive bone lesions.IMPRESSIONMild to moderate constipation, no acute intra-abdominal abnormalitiesLarge hiatal hernia containing the stomach and the transverse colon.Electronically signed by: April Barnett (Mar 01, 2023 13:04:44)
[2023-03-01] MEDS: RESTORIL CAP 15 MG PO PRN (21:51)
[2023-03-02] MEDS: NS 1,000 ML IV 1,000 ML IV SCH ×3 (03:06→15:43)
[2023-03-02] MEDS: TORADOL 15 MG VIAL IVP SCH ×2 (03:07→08:59)
[2023-03-02 04:04] VITALS: RESP 18
[2023-03-02 05:32] LABS: BASOPHILS # (AUTO) 0.1 X10^3/uL (0.0-0.1); BASOPHILS % (AUTO) 2.3 % (0.2-1.0); EOSINOPHILS # (AUTO) 0.3 x10^3/uL (0.0-0.2); EOSINOPHILS % (AUTO) 6.8 % (0.9-2.9); HEMATOCRIT 28.3 % (36.0-47.0); HEMOGLOBIN 9.7 g/dL (12.0-16.0); LYMPHOCYTES # (AUTO) 1.4 X10^3/uL (1.3-2.9); LYMPHOCYTES % (AUTO) 30.1 % (21.0-51.0); MEAN CORPUSCULAR HEMOGLOBIN 29.8 pg (27.0-34.0); MEAN CORPUSCULAR HGB CONC 34.3 g/dL (33.0-35.0); MEAN CORPUSCULAR VOLUME 86.9 fL (80.0-100.0); MEAN PLATELET VOLUME 6.9 fL (7.4-11.0); MONOCYTES # (AUTO) 0.5 x10^3/uL (0.3-0.8); MONOCYTES % (AUTO) 10.9 % (0.0-13.0); NEUTROPHILS # (AUTO) 2.4 x10^3/uL (2.2-4.8); NEUTROPHILS % (AUTO) 49.9 % (42.0-75.0); PLATELET COUNT 528 X10^3/uL (150.0-450.0); RED BLOOD COUNT 3.25 X10^6/uL (3.5-5.4); RED CELL DISTRIBUTION WIDTH 13.5 % (11.6-16.5); WHITE BLOOD COUNT 4.8 X10^3/uL (3.6-10.0)
[2023-03-02 05:52] LABS: ALANINE AMINOTRANSFERASE 13 Units/L (12-78); ALBUMIN 3.1 g/dL (3.4-5.0); ALKALINE PHOSPHATASE 32 Units/L (46-116); ASPARTATE AMINO TRANSFERASE 10 Units/L (15-37); BLOOD UREA NITROGEN 20 mg/dL (7-18); CALCIUM 8.2 mg/dL (8.5-10.1); CARBON DIOXIDE 31.4 mmol/L (21-32); CHLORIDE 106 mmol/L (98-107); COR CA(FOR HYPOALB) 8.9 mg/dL (8.5-10.1); CREATININE 1.15 mg/dL (0.55-1.02); GLUCOSE 95 mg/dL (65-99); MAGNESIUM 2.3 mg/dL (2.0-2.9); POTASSIUM 3.8 mmol/L (3.5-5.1); SODIUM 142 mmol/L (136-145); TOTAL PROTEIN 5.8 g/dL (6.4-8.2); eGFR NON BLACK RACES 48 (>60)
[2023-03-02] MEDS: PHARMACY CONSULT - POTASSIUM & MAGNESIUM XX SCH (06:24)
[2023-03-02] MEDS: XOPENEX 1.25 MG/3 ML NEBULE NEB SCH (06:25)
[2023-03-02] MEDS: ALBUMIN HUMAN 25%- 100 ML 100 ML IV SCH (08:21)
[2023-03-02] MEDS: LOVENOX INJ 30 MG SYR SC SCH (08:21)
[2023-03-02] MEDS: COZAAR PO SCH (08:22)
[2023-03-02] MEDS: VSL#3 PO SCH (08:22)
[2023-03-02] MEDS ORDERED: CIPRO IV 400 MG PREMIX* 400 MG/200 ML IV.SOLN. IV SCH (10:00)
[2023-03-02 15:43] VITALS: BP 173/77; PULSE 88; TEMP 97.6; O2SAT 95
== END 2023-03-02 17:15 | disposition home or self-care (01) ==
LOC: MED/SURG
PROVIDERS: ADMIT Internal Medicine; ATTEND Internal Medicine
DX: R26.89 Other abnormalities of gait and mobility; R53.1 Weakness; R59.0 Localized enlarged lymph nodes; Z85.3 Personal history of malignant neoplasm of breast; K44.9 Diaphragmatic hernia without obstruction or gangrene; R06.02 Shortness of breath; E86.0 Dehydration; J18.0 Bronchopneumonia, unspecified organism; R42 Dizziness and giddiness; I10 Essential (primary) hypertension; E88.09 Other disorders of plasma-protein metabolism, not elsewhere classified